=== PATIENT | female | born 1935 | race Caucasian/White ===

== ENCOUNTER 2019-09-22 07:31 | Inpatient (IN) | payer MEDICARE, OTHER, SELFPAY ==
[2019-09-14 08:32] VITALS: BMI 31.4
[2019-09-22] VITALS (20 sets, daily range): BP systolic 74–139; BP diastolic 33–65; PULSE 60–69; RESP 10–17; TEMP 35.8–36.6; O2SAT 6–100; BMI 31.4
--- NOTE | 2019-09-22 | DI.RAD.S_ITS ---
PROCEDURE: XR PELVIS 1-2V INDICATIONS: LEFT INTEROPERATIVE HIP TECHNIQUE: Intra-operative view of the pelvis and hip acquired. COMPARISON: None. FINDINGS: Bones: Intraoperative devices prior to placement of arthroplasty prostheses are in expected positions. No fractures or suspicious bony lesions. Soft tissues: Overlying surgical retractors are present, along with other intraoperative changes. IMPRESSION: Intraoperative image obtained during the patient's left hip arthroplasty procedure. Dictated by: Mick Martinez M.D. on 09/22/2019 at 11:35 Approved by: Mick Martinez M.D. on 09/22/2019 at 11:36
--- NOTE | 2019-09-22 | DI.RAD.S_ITS ---
PROCEDURE: XR PELVIS 1-2V INDICATIONS: INTEROPERATIVE LEFT HIP FOR STABLIZATION TECHNIQUE: 1 view of the lower pelvis acquired. COMPARISON: None. FINDINGS: Intraoperative AP view of pelvis shows left total hip arthroplasty in progress. IMPRESSION: Intraoperative images of left total hip arthroplasty in progress. Dictated by: Luis Crawford M.D. on 09/23/2019 at 11:01 Approved by: Luis Crawford M.D. on 09/23/2019 at 11:02
--- NOTE | 2019-09-22 06:00 | DI.RAD.S_ITS ---
PROCEDURE: XR PELVIS 1-2V INDICATIONS: POST OPERATIVE LEFT HIP TECHNIQUE: 1 view of the lower pelvis acquired. COMPARISON: [facility], , XR PELVIS 1-2V, 09/22/2019, 11:51. FINDINGS: Bones: Patient is status post left hip arthroplasty, with hardware components in expected positions. The hip joint appears congruent. The visualized bony structures appear intact. There is severe narrowing of the right hip joint with near bone on bone contact, subchondral sclerosis and cystic change. Periarticular osteophyte formation is present. Soft tissues: Overlying postoperative changes are noted. No suspicious soft tissue densities. There are quadrant surgical clips. IMPRESSION: Expected immediate postoperative appearance of left hip arthroplasty. Dictated by: Karsten Suarez LOCATED [facility]IN [facility] Interpreted: Tracy Gil MD on 09/22/2019 at 14:09 Approved by: Tracy Gil MD, PhD on 09/22/2019 at 14:55
[2019-09-22] MEDS: LACTATED RINGERS 1,000 ML 42 ML IV ×3 (08:51→16:14)
[2019-09-22] MEDS: CELECOXIB 200 MG CAPSULE PO (08:52)
[2019-09-22] MEDS: ACETAMINOPHEN 325 MG TABLET 975 MG PO (08:52)
[2019-09-22] MEDS: PREGABALIN 75 MG CAPSULE PO (08:52)
[2019-09-22] MEDS: CEFAZOLIN 2 GM/100 ML FROZ.PIGGY IV ×3 (09:01→20:27)
--- NOTE | 2019-09-22 09:02 | PM.PREOP ---
Pre-operative Note Interval Note History & Physical reviewed/Exam performed by Physician: Yes Changes to H&P: No
[2019-09-22] MEDS: TRANEXAMIC ACID 1,000 MG VIAL 1000 MG INJ ×2 (09:22→12:50)
--- NOTE | 2019-09-22 09:35 | SUR.OPER ---
Lateral on padded OR bed. Gel axillary roll. Arms secured on padded armboard with pillow supporting top arm. Padded hip positioner braces x4 - anterior and posterior chest and pelvis. Additional gel pad used anterior pelvis. Gel pad under bottom leg from knee to foot and secured with tape over sheet.
[2019-09-22] MEDS: MORPHINE 4 MG/ML INJ INJ (09:43)
[2019-09-22] MEDS: ROPIVACAINE 0.5% PF 5 MG/ML 20ML VIAL 60 ML INJ (09:43)
[2019-09-22] MEDS: KETOROLAC 30 MG/ML VIAL IV (09:43)
[2019-09-22] MEDS: SODIUM CHLORIDE IRRIG SOLUTION 250 ML, POVIDONE-IODINE SPONGE STICKS 1 APPLIC IRR (12:23)
--- NOTE | 2019-09-22 13:59 | PM.OP.1 ---
Operative Date/Time/Diagnoses Date of procedure: 09/22/19 Time of procedure: 14:01 Pre-op diagnosis: Left hip degenerative joint disease Post-op diagnosis: same Procedure & Clinicians Procedure: Left total hip arthroplasty (CPT code 55397) Modifier 22 for need for co-surgeon due to complicated acetabular anatomy. Same procedure as scheduled: Yes Indications: Patient is an 84-year-old female with severe left hip DJD. The patient has pain with activities and at rest, limited ambulation and activity tolerance, difficulties with ADLs, and failure of conservative treatment. We have discussed the nature of condition, treatment options, risks and benefits, and patient elects to proceed with total hip arthroplasty and gives informed consent. Surgeon: Behzad Burks Anesthesia Type: General and Spinal Operative Notes Findings: Notable difficulties present in this case had to do primarily with severe periacetabular osteopenia and periacetabular cysts particularly in the posterior column. This resulted in inadequate bone posteriorly for circumferential fixation of the acetabular component which required essentially revision acetabular component fixed with multiple screws. In addition prior to the final implantation and fixation attempts at fixation of a standard acetabular component resulted in medial acetabular wall penetration/fracture, but not acetabular discontinuity. Because of the complexity acetabular anatomy and problems presented, 2nd surgeon Dr. Hughes, scrubbed in for his expertise in complex acetabular arthroplasty. Closure Type: primary Specimen(s): none sent Prosthetic devices, grafts, tissues, transplants, or devices: Acetabulum: Elaine and Nephew R3 acetabular component size 50 mm, fixed with 4 fixation screws Femoral component: Elaine [employer] Nephew Anthology stem size 5 with high offset Femoral head: 32 mm + 8 cobalt chrome Estimated Blood Loss (mL): 250 Blood products transfused: none Procedure in detail: After satisfaction induction of anesthetic, and administration of IV antibiotics, the patient was positioned in the lateral decubitus position with all bony prominences well padded and pelvic position secured using a hip cleaning validation consultant positioning device. Left hip and lower extremity prepped and draped in the usual sterile fashion, 1st dose of intravenous tranexamic acid was administered, then a longitudinal incision was created centered over the greater trochanter and carried sharply through the skin and subcutaneous tissues down to the fascia leandro which was divided longitudinally and retracted with a Charnley retractor. External rotators visualize, cut, tagged, and retracted posteriorly, then the capsule was cut in a T-type fashion with the corners tagged and retracted. Hip was dislocated and femoral neck cut made according to preoperative templating. Acetabular retractors then placed, and the acetabular labrum and osteophytes were excised. The acetabulum was then sequentially reamed to 47 mm which appeared adequate, however after removal of the acetabular trial it was noted that the acetabular lip was inadequate posteriorly. The acetabulum was reamed slightly deeper and another trial appeared adequate so a 48 mm Elaine and Nephew R3 acetabular component was selected and inserted however after impacting in place this impacted more medially than anticipated although appeared stable. Intraoperative x-rays were taken which demonstrated protrusio position of the acetabular component with overall good alignment and probable medial wall fracture. Because this appeared stable liner was placed. The proximal femur was prepared by 1st removing soft tissue from the lateral femoral neck, entering the canal with a box osteotome, and sequential broaching to size 5 which had an excellent fit. The broach was left in place for a trial reduction which was then performed, however after trialing the acetabular component was obviously not stable and after removal of the implant was noted that the posterior wall was entirely inadequate. The acetabulum was copiously irrigated, and after Dr. Hughes scrubbed in, the acetabulum was further assessed, and we opted to insert the 50 mm multi-holed acetabular component. After insertion, there was minimal inherent fixation or stability, but after fixation with 2 long superior screws, fixation and postition appeared adequate. 2 more inferior screws were placed, followed by placement of a trial liner. The femoral broach was then reinserted and a series of trial reductions was performed with the neutral acetabular liner trial and a combination of standard and high offset necks with +0 +4 and +8 head lengths. With the hip flexed 90? and abducted the hip could only be rotated internally about 20? before there was posterior instability, so the trial acetabular liner was switched for a lipped trial with the lip directed posteriorly. Moderate amount of anterior osteophyte was then excised using a curved osteotome. This in combination with a high offset +8 neck yielded good stability with flexion at 90 abduction and internal rotation to about 60? of internal rotation. The trial liner was then exchanged for a permanent polyethylene posterior lipped liner. The femoral broach was removed and a size 5 high offset Elaine and Nephew anthology stem was inserted and impacted with excellent fixation achieved. A 32 mm +8 cobalt chrome ball was then impacted onto the femoral component. The hip was reduced and satisfactory leg length, range of motion, and stability characteristics were achieved. Periarticular tissues were infiltrated with morphine, Toradol, and ropivacaine. The hip was copiously irrigated, and the capsule repaired with #2 Ethibond, and the piriformis was repaired back to the greater trochanter with the same. Fascia leandro closed with interrupted #1 Ethibond sutures, and the subcutaneous tissues were closed in 2 layers of 0 Vicryl and 2 0 Vicryl. Skin was closed with gordo and sterile dressings applied. Second dose of tranexamic acid was administered intravenously, and the anesthetic was terminated. Complications: none Post-operative Condition: stable Disposition: PACU Plan for aftercare: Routine postoperative after care with the exception of toe-touch weight-bearing for 6 weeks to allow bone consolidation. Will also use an abduction pillow while in bed and continue to observe posterior hip precautions. Probable discharge home or to extended care facility depending on status on postop day 3.
--- NOTE | 2019-09-22 14:41 | SUR.PHASEI ---
Report given to Alla
[2019-09-22] MEDS: ACETAMINOPHEN 325 MG TABLET 650 MG PO ×2 (15:45→20:27)
[2019-09-22] MEDS: diphenhydrAMINE 25 MG TABLET PO (20:28)
--- NOTE | 2019-09-22 23:27 | PC.NURSE ---
Evening Shift Note- Called anesthia regaurding Patients blood pressures and no order for IV fluids. Dr. Lorenzana came up to see the patient. Recieved orders for LR at 42cc/hr and and order for a bolus of LR to give if patients BP's went lower then the 88/[address] I had [address] about[address] Lorenzana stated patient blood pressures were ok and he was not worried about them at this point. I did hold patient 2100 blood pressure medications. Patient reports no s/s of low blood pressure. safety measures in place. call berumen and phone within reach. will continue to monirtor.
[2019-09-23] VITALS (13 sets, daily range): BP systolic 116–151; BP diastolic 51–74; PULSE 60–80; RESP 14–18; TEMP 36.1–36.8; O2SAT 95–98
--- NOTE | 2019-09-23 00:32 | PC.NURSE ---
Addendum entered by Ramandeep Pringle R.N. 09/23/19 05:19: Patient had a measured void in bed freeman of 75ml and one unmeasured void in bed. Bladder scan showed approx 2ml of retained urine. Original Note: Shift note: Received pt from evening shift. Patient answers orientation questions correctly but is acutely confused with memory loss and auditory/visual hallucinations. Patient is associating light from hallway with leg SCD's, when the bar fills up, then I get pressure on my legs and per report from TRANSIT CLERK patient states there's a macias on my ceiling and it's talking to me. Patient can be reoriented but becomes forgetful to the sensations she is experiencing with the blood pressure cuff, leg SCDs, and when she was bladder scanned on evening shift. Patient had not met post op void and was experiencing hypotension, was bladder scanned on evening shift and per TRANSIT CLERK had estimated 84mls. Patient was encouraged to drink fluids, became nauseated and had small emesis. Patient's bp has improved and is now 116/57, holding LR bolus for now. Patient is denying pain, is able to use call light, with confusion is high fall risk, bed alarm on and functioning, will continue to reorient frequently and monitor closely.
[2019-09-23] MEDS: CEFAZOLIN 2 GM/100 ML FROZ.PIGGY IV (04:03)
[2019-09-23] MEDS: LEVOTHYROXINE 112 MCG TABLET PO (05:35)
[2019-09-23] MEDS: PANTOPRAZOLE 20 MG TABLET PO (05:35)
[2019-09-23 05:37] LABS: Hematocrit 32.2 % (36-46)
[2019-09-23] MEDS: PRAVASTATIN 20 MG TABLET 40 MG PO (08:22)
[2019-09-23] MEDS: VIT C/E/ZN/COPPR/LUTEIN/ZEAXAN CAPSULE 1 CAP PO ×2 (08:22→21:06)
[2019-09-23] MEDS: ACETAMINOPHEN 325 MG TABLET 650 MG PO ×2 (08:23→21:06)
--- NOTE | 2019-09-23 10:12 | PM.PN.1 ---
Subjective Subjective Date Patient Seen: 09/23/19 Time Patient Seen: 10:12 Interval history: Patient is POD#1 s/p right posterior MARGRET with Dr. Burks. Pain well mild and well controlled. She has not yet mobilized with PT. Had some confusion overnight, thought she was waiting to have surgery still, but she is oriented this morning and answers questions appropriately. Denies any chest pain or shortness of breath. Exam Vital Signs (past 8 hours): - 09/23/19 05:05 09/23/19 08:00 09/23/19 08:27 Temperature 97.9 F 98.2 F Pulse Rate 60 67 60 Respiratory Rate 18 16 Blood Pressure 124/51 L 123/52 L 123/52 L Pulse Oximetry 96 98 09/23/19 08:28 09/23/19 08:45 Temperature Pulse Rate 60 66 Respiratory Rate Blood Pressure 123/52 L Pulse Oximetry 98 Oxygen Delivery Method Room Air Oxygen Flow Rate 0 Narrative Exam Narrative: 84 year old female resting comfortably in bed. Alert and oriented in no acute distress. Bulky dressing in place over left hip is CDI. Patient able to fire ankle flexors and extensors. Palpable pedal pulse. Calves soft, compressible. Objective Labs Result Diagrams: 09/23/19 05:21 Labs: Laboratory Results - last 24 hr 09/23/19 05:21 Hgb 11.0 L Hct 32.2 L Assessment & Plan Assessment & Plan narrative: Patient doing well post operatively. Patient mildly asymptotically hypotensive, BP meds held this AM. Will resume later today if improved. Patient takes Warfarin for history of Afib, Lovenox x3 days for bridge. She is to remain toe touch weight bearing for 6 weeks with posterior hip precautions to allow for bone consolidation. No abduction pillow present in the room, discussed need for this with PT. Due to concerns over the acetabulum and subsequent activity restrictions patient will require a 3 day inpatient stay, and will likely need vs SNF at time of discharge. Quality VTE Deep Vein Thrombosis/Pulmonary Embolism Present on Admission: No
[2019-09-23] MEDS: ENOXAPARIN 40 MG/0.4 ML SYRINGE SUBCUT (10:57)
--- NOTE | 2019-09-23 11:00 | PT.IIE ---
Current Diagnoses Unilateral primary osteoarthritis, left hip (09/22/19) Surgery Performed Operation Date: 09/22/19 08:45 Actual Procedures p Total Hip Arthroplasty(Left) - Behzad Burks MD Surgical History (Last Updated 09/14/19 @ 08:48 by Kayla Baldwin RN) H/O cardiac catheterization (Acute ~10/2010) H/O cardiac radiofrequency ablation (Acute) Hx of appendectomy (Acute) Medical History (Last Updated 09/14/19 @ 09:22 by Kayla Baldwin RN) A-fib (Acute) BCC (basal cell carcinoma) (Acute) CAD (coronary artery disease) (Acute) Easy bruisability (Acute) Fibromyalgia (Acute) Former smoker (Acute) GERD (gastroesophageal reflux disease) (Acute) HLD (hyperlipidemia) (Acute) HTN (hypertension) (Acute) Hypothyroidism (Acute) Osteoarthritis (Acute) Osteoporosis (Acute) Pacemaker (Acute ~2017) Pneumonia (Acute) SCC (squamous cell carcinoma) (Acute) Wrist fracture (Acute) Physical Therapy Inpatient Evaluation/Re-Eval M1 PT/OT-IP Prior Functional Status Start: 09/23/19 08:24 Freq: NEEDED Status: Active Protocol: Document 09/23/19 11:21 AW (Rec: 09/23/19 13:10 AW [email or web address]) Medical Review Prior Functional Status Medical History Reviewed Yes Diet/Fluid Consistency Regular Communication WNL. No deficits on EMR review . Mobility and Gait Pt used a 4WW 100% of the time with limited ambulation distance Activities of Daily Living and IADL's Pt required assistance with lower body dressing and with washing her back in the shower . She drives and performs light household duties. Her daughter Ngozi lives on an adjacent property and helps with meal prep. Prior Functional Level (Other details) Pt reports an injurious fall ~ 2 weeks ago during which she caught her right 5th digit which remains swollen. She also admits to one other non- injurious fall in the past year. Social History Household Members spouse Living Arrangements House Number of Floors (Floors) Two Floors Number of Stairs To Enter/Railing? Newly-ramped entry. However, once inside, pt climbs 4 stairs to a living area where she is accustomed to spending a lot of time. There is a right-sided railing going up those stairs Home Environment High Toilet,Tub/Shower Doors Home Equipment Four Wheel Walker,Straight Cane,Raised Toilet Seat w/ Armrests,Shower Seat with Backrest,Hand Held Shower Additional Social History Comment Pt lives with her spouse, Tomasz, who is a retired veterinary pathologist and has used a L UE prosthesis >50 years. He is able to provide physical assist at home. 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 Of note regarding home environment, pt is ~4'8 and requires a stool to get in and out of her bed. M2 PT-IP Current Condition Start: 09/23/19 08:24 Freq: NEEDED Status: Active Protocol: Document 09/23/19 11:21 AW (Rec: 09/23/19 13:10 AW [email or web address]) Physical Therapy Current Condition Current Condition Evaluation Date 09/23/19 Treatment Diagnosis s/p L MARGRET, impaired mobility Onset Date 09/22/2019 Precautions Posterior Hip Precautions No Hip Flexion > 90 degrees,No Hip Internal Rotation,No Hip Adduction Other Precautions Abduction pillow while in bed. Pacemaker. Weight Bearing Status Weight Bearing Status Touch Down Weight Bearing M3 PT-IP Subjective Start: 09/23/19 08:24 Freq: NEEDED Status: Active Protocol: Document 09/23/19 11:21 AW (Rec: 09/23/19 13:10 AW [email or web address]) Subjective Physical Therapy Visit Type Type Initial Evaluation Visit Start Time 09:13 Visit Stop Time 10:30 Total Visit Minutes 77 Notes Pt's spouse, Tomasz, present through most of evaluation and contibuted to history. Physical Therapy Visit Comments Patient Comments Pt alert but somewhat confused , willing to work with therapy . This is a lot to remember and think about. Therapy Pain Assessment Pain When Pain Assessed During Mobility Pain Present Pain Present Pain Reported Location left hip Intensity 2 Scale Used 0/10 at rest; 2/10 with mobility Description Pressure Pain Management Techniques Distraction,Re-positioning, Timing of Activity with Medications M4 PT-IP Mobility and Gait Start: 09/23/19 08:24 Freq: NEEDED Status: Active Protocol: Document 09/23/19 11:21 AW (Rec: 09/23/19 13:10 AW [email or web address]) PT-Bed Mobility Assessment Supine to Sit Supine to Sit Minimal Assistance,1 Person Assistance,Head of Bed Elevated,Bedrails Scooting Scooting to Edge of Bed Minimal Assistance PT-Transfer Assessment Sit to and From Stand Sit to and from Stand Maximum Assistance,1 Person Assistance,Use of Upper Extremities Equipment Transfer Assistive Device Gait Belt,Front Wheeled Walker Orthotic/Prosthetic Devices or Brace: No Transfers Transfer Destination Chair Transfer Technique Stand Step Pivot Transfer Ability Level of Assist Maximum Assistance,1 Person Assistance Comments Mobility Comments Pt completed supine to sit with heavy use of bed features and min assist of therapist in front to help pull up to sitting with cues to observe posterior hip precautions. Pt was able to sit EOB with and without UE support. She stood using FWW, max A x 1, and verbal cues to maintain NWB LLE. She had difficulty bearing weight through her BUE due to chronic carpal tunnel syndrome (L worse than R) and swollen R 5th digit, but was able to pivot transfer to chair using FWW and max A x 1. Pt was positioned in the chair with bed pillow between legs, call light and needs within reach, and spouse visiting. Gait Assessment Comments Gait Comments Unable to assess Stair Climbing Assessment Comments Stair Climbing Comments Unable to assess PT-Balance Assessment Sitting Balance and Reactions Static Sitting Balance Ability Good Dynamic Sitting Balance Ability Fair Standing Balance and Reactions Static Standing Balance Ability Poor Dynamic Standing Balance Ability Poor Device Used FWW M5 PT-IP Objective Assessments Start: 09/23/19 08:24 Freq: NEEDED Status: Active Protocol: Document 09/23/19 11:21 AW (Rec: 09/23/19 13:10 AW [email or web address]) Orientation Orientation/Cognition Level of Alertness Confusional State Orientation Name,Month,Year,Place, Situation Language Function Ability No Deficits Noted Safety Awareness Decreased Safety Awareness Memory Description Short Term Impaired Comments Pt noted to have had hallucinations and confusion overnight but presents with improved orientation this morning. Gross Range of Motion Upper Extremity ROM Assessment Within Functional Limits Lower Extremity ROM Assessment Left Impaired Strength Upper Extremity Strength Assessment Bilaterally Impaired Shoulder 4-/5 Elbow 4-/5 Wrist 3+/5 Hand 4-/5 Lower Extremity Strength Assessment Bilaterally Impaired Hip R 4/5; L 3-/5 Knee R 4/5; L 3-/5 Ankle B 4/5 Coordination Assessment Gross Coordination Gross Coordination WNL Sensation Assessment Sensation Gross Sensation WNL M6 PT-IP Treatment Start: 09/23/19 08:24 Freq: NEEDED Status: Active Protocol: Document 09/23/19 11:21 AW (Rec: 09/23/19 13:10 AW [email or web address]) Physical Therapy Treatment Exercises Exercises Ankle Pumps,Heel Slides Education Education Provided Precautions,Weight Bearing Status,Post-Op Packet,Safety Other Treatments Other Treatment Performed Provided education on role of PT, plan of care, post-op precautions, weightbearing status, and safe use of FWW. Also initiated discharge planning conversation with pt and spouse stating they are open to rehab options. M7 PT-IP Assessment and Plan Start: 09/23/19 08:24 Freq: NEEDED Status: Active Protocol: Document 09/23/19 11:21 AW (Rec: 09/23/19 13:10 AW [email or web address]) PT Summary Assessment and Plan Potential Rehabilitation Potential Good Status of Condition at Evaluation Evolving Summary Impairments Pain,ROM,Strength,Balance, Cognition,Bed Mobility, Transfers,Gait Assessment Summary Margaret is an 84 yo woman seen for PT evaluation on POD1 following L MARGRET with posterior approach which was complicated by an acetabular wall fracture. She will be TTWB for 6 weeks. At baseline, she uses a 4WW at all times. She states she uses her right hand on the walker but leans her left forearm on it due to chronic carpal tunnel. She also requires assist with lower body dressing and showering. On evaluation, this therapist had concerns for pt 's ability to manage high cognitive load of posterior hip precautions and TTWB status. She required min to max assist x 1 for bed mobility and stand pivot transfer due to poor RLE strength and impaired ability to bear weight through bilateral wrists secondary to carpal tunnel syndrome. She may benefit from a platform for LUE weightbearing. PT recommends SNF rehab Goals Bed Mobility Goal Contact Guard Assistance Transfer Goal Contact Guard Assistance,Front Wheeled Walker Gait Goal Contact Guard Assistance,Front Wheel Walker Gait Distance 15 Other Goals - up/down 1 platform step with FWW CGA for safe access to her bed at home. Days to Meet Goals 10 Frequency of Treatment Frequency Of Treatment Twice a Day Treatment Plan Physical Therapy Treatment Plan Bed Mobility Training,Transfer Training,Gait Training, Therapeutic Exercise,Balance Retraining,Post Op Education, Discharge Planning,Hot or Cold Pack,Neuromuscular Re-ed, Manual Therapy Other Recommendations and Next Treatment review precautions, WB status, Focus ther ex, transfers Recommendations To Nursing Amount of Assist Needed 2 Person Assist,3 or More Person Assist Discharge Recommendations PT Discharge Recommendations SNF Rehab Equipment Needed for Home Before FWW if going home Discharge
--- NOTE | 2019-09-23 11:02 | PC.NURSE ---
Addendum entered by Alla Gilman R.N. 09/23/19 15:01: Patient just given her Metoprolol at 1500. BP 134/58 and pulse 80. Ortho PA stated to given this when systolic up to high 50s Original Note: Assess: Pt woke up and thought that she was not suppose to eat breakfast this morning because she was going to have surgery. It was reported by noc shift that she was having some hallucinations, maybe from anesthesia. L.hip dressing is cdi, Pt is non weight bearing on her hip. Up in chair now and comfortable. Pt has a pace maker, her blood pressure has been low 100s/40s. PA into assess patient and states to give at least Metoprolol xr if her blood pressure (diastolic) comes up in to the high 50s. She takes other blood pressure meds that have been held this morning and also takes another beta rashid. She has a hx of afib, and denies heart palpitations, pacemaker felt and heart rate is regular at this time.
[2019-09-23] MEDS: HYDROCODONE/ACET 5/325 TABLET 1 TAB PO ×2 (12:59→21:06)
--- NOTE | 2019-09-23 14:21 | CM.IDA ---
Initial DCP Assessment Note: Pt is an 84 yo female, resident of [place]. Pt is POD#1 from left hip surgery w/ Dr Bruks. PCP: Nori Lima Payer: [facility]/[place] Met w/pt and her this morning, introduced role. Pt/spouse live on a farm and dtr Ngozi lives on the same property. Pt is not indp in ADLs, requires assist w/bathing, meal prep and chores/errands, see therapy note for detail. According to therapy team, pt would benefit from SNF before return home, so this [employer] discussed [facility] SNF benefit w/pt/spouse and provided the [facility] choice list. Returned after lunch to ask pt for SNF choice and she explained her family was touring options and she should have a choice by this afternoon or tomorrow morning. [employer] contact information left on white board in . Following closely for coordination of DCP. ELIAS Peres Discharge Planning/Care Management CM Discharge Assessment Start: 09/23/19 14:16 Freq: Status: Active Protocol: Document 09/23/19 14:16 CHRIS (Rec: 09/23/19 14:20 CHRIS [id number]) Discharge Planning Assessment Assigned Director Clinical Operations ELIAS Puente DPOA/Assigned Designee Name Tomasz () Ngozi ( daughter) Contact Information [place]: [phone] Ngozi: [phone] Advance Directives? Yes Advance Directives on File No History Provided By Patient Prior Living Arrangements House Household Members spouse Independent with ADL's No: 4WW, limited ambulation, Is patient alert and oriented? Yes: Some short term memory loss Needs Assistance With Bathing,Meal Prep,Managing Medications,Home Chores / Shopping Caregiver for Another No DME Already Rented / Owned FWW / Walker Patient/Family Preference Long-Term Facility Barriers to Discharge Yes Discharge Plan Long-Term Facility Transportation Arrangement Cab[facility] Additional Comment SNF referral pending choice from pt/family Medicare Choice List Provided Yes Whiteboard Updated in Patient Room with Yes name and ext. # of Director Clinical Operations
[2019-09-23] MEDS: METOPROLOL ER 50 MG TABLET PO ×2 (14:58→21:08)
--- NOTE | 2019-09-23 15:57 | OT.IP.EVAL ---
Current Diagnoses Unilateral primary osteoarthritis, left hip (09/22/19) Surgery Performed Operation Date: 09/22/19 08:45 Actual Procedures p Total Hip Arthroplasty(Left) - Behzad Burks MD Past Medical History (Last Updated 09/14/19 @ 09:22 by Kayla Baldwin RN) A-fib (Acute) BCC (basal cell carcinoma) (Acute) CAD (coronary artery disease) (Acute) Easy bruisability (Acute) Fibromyalgia (Acute) Former smoker (Acute) GERD (gastroesophageal reflux disease) (Acute) HLD (hyperlipidemia) (Acute) HTN (hypertension) (Acute) Hypothyroidism (Acute) Osteoarthritis (Acute) Osteoporosis (Acute) Pacemaker (Acute ~2017) Pneumonia (Acute) SCC (squamous cell carcinoma) (Acute) Wrist fracture (Acute) Surgical History (Last Updated 09/14/19 @ 08:48 by Kayla Baldwin RN) H/O cardiac catheterization (Acute ~10/2010) H/O cardiac radiofrequency ablation (Acute) Hx of appendectomy (Acute) Occupational Therapy Inpatient Evaluation/Re-Eval M1 PT/OT-IP Prior Functional Status Start: 09/23/19 08:24 Freq: NEEDED Status: Active Protocol: Document 09/23/19 15:57 PJM (Rec: 09/23/19 16:36 PJM [email or web address]) Medical Review Prior Functional Status Medical History Reviewed Yes Diet/Fluid Consistency Regular Communication WNL. No deficits on EMR review . Mobility and Gait Pt used a 4WW 100% of the time with limited ambulation distance due to hip pain. Activities of Daily Living and IADL's Pt states she was indep with grooming, toileting and seated shower. She required assistance with lower body dressing (primarily socks). 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 Her daughter Ngozi lives on an adjacent property and helps with meal prep. Prior Functional Level (Other details) Pt reports an injurious fall ~ 2 weeks ago during which she caught her right 5th digit which remains swollen. She also admits to one other fall in the past year with no injuries. Social History Household Members spouse Living Arrangements House Number of Floors (Floors) Two Floors Number of Stairs To Enter/Railing? ramp at entrance; 4 stairs inside to living area Home Environment High Toilet,Tub/Shower,Tub/ Shower Doors Home Equipment Four Wheel Walker,Straight Cane,Raised Toilet Seat w/ Armrests,Shower Seat with Backrest,Hand Held Shower Employment Status Retired M2 OT-IP Current Condition Start: 09/23/19 13:59 Freq: Status: Active Protocol: Document 09/23/19 15:57 PJM (Rec: 09/23/19 16:36 PJM [id number]) Occupational Therapy Current Condition Current Condition Evaluation Date 09/23/19 Treatment Diagnosis decreased ADL's, mobility, cognition s/p LTHA w/intra-op acetabular fx due to osteopenia Diagnosis Onset Date 09/22/19 Post Operative Precautions Posterior Hip Precautions No Hip Flexion > 90 degrees,No Hip Internal Rotation,No Hip Adduction Other Precautions fall risk, confusion, recommend B wrist splints on for mobility due to B CTS Weight Bearing Status Weight Bearing Status Touch Down Weight Bearing Allowed Weight Bearing Amount (enter % LLE x 6 weeks or #) (%) M3 OT- IP Subjective and Pain Start: 09/23/19 13:59 Freq: Status: Active Protocol: Document 09/23/19 15:57 PJM (Rec: 09/23/19 16:36 PJM [id number]) OT- Subjective Occupational Therapy Visit Type Type Initial Evaluation Visit Start Time 15:20 Visit Stop Time 15:57 Total Visit Minutes 37 Notes No family here this session. Occupational Therapy Visit Comments Patient Comments My daughter and are going to look at some rehab places for me. Patient/Caregiver Goals to get stronger, be able to walk without pain and return home with OT Pain Assessment Pain When Pain Assessed After Treatment Pain Present Pain Present Pain Reported Location left hip Intensity 5 Scale Used Numeric (1 - 10) Description Aching,Acute Pain Behaviors Guarding Management Techniques Distraction,Re-positioning, Timing of Activity with Medications M4 OT- IP ADL's Start: 09/23/19 13:59 Freq: Status: Active Protocol: Document 09/23/19 15:57 PJM (Rec: 09/23/19 16:36 PJM [email or web address]) OT ADL-Grooming General Evaluation Grooming Ability Standby Assistance Areas Needing Assistance Retrieving/Set-up of Grooming Items,Face Washing Comments OT Grooming Comments seated in chair OT ADL-Oral Care Comments Oral Care Comments did not occur this session OT ADL-Dressing General Eval Lower Body Dressing Ability Total Assistance Assistive Devices Dressing Assistive Devices Long Handled Shoe Horn,Diversity Manager ,Sock Aid Comments OT Dressing Comments provided LB dressing equipt; pt requires repetition of explanation re: why she needs this equipt OT ADL-Toileting Comments OT Toileting Comments did not occur this session OT ADL-Bathing Bathing Type Bathing Type Bed Bath General Evaluation Bathing Ability Maximal Assistance M5 OT- IP IADL's Start: 09/23/19 13:59 Freq: Status: Active Protocol: Document 09/23/19 15:57 PJM (Rec: 09/23/19 16:36 PJ [id number]) OT-Instrumental Activities of Daily Living Deficits IADL Deficits Identified Deficits Home Safety Awareness Awareness of Need for Assistance at Home Decreased Awareness Medication Management Medication Management Caregiver Provides Supervision Medication Management Comments pt appears to have some short term memory deficits, recommend supervision for medication management Money Management Money Management Caregiver Provides Supervision Money Management Comments recommend supervision due to short term memory deficits Meal Preparation Meal Preparation Comments pt needs total assist at present Naval Inspector Naval Inspector Comments pt needs total assist at present Driving Driving Comments pt not able to drive at present M6 OT- IP Functional Cognition Start: 09/23/19 13:59 Freq: Status: Active Protocol: Document 09/23/19 15:57 PJM (Rec: 09/23/19 16:36 PJ [id number]) Cognitive Factors Limiting Selfcare Function Cognitive Ability Level of Alertness Alert Patient Orientation Name,Month,Year,Place, Situation Attention Span Ability Capable of Focused Attention, Capable of Sustained Attention Ability to Follow Commands Able to Follow One Step Commands Memory Description Short Term Impaired Safety Awareness Decreased Recall of Precautions,Decreased Ability to Apply Precautions, Underestimates Need for Assistance Problem Solving Ability Unable to Identify Errors, Needs Assist to Identify Solutions Executive Function Ability Unable to Remember Details Cognitive Comments Cognitive Assessment Comments Pt still confused about day of week, day of surgery and some recent events. Pt able to recall 2/3 hip precautions with min cues but needs max cues to apply them during functional tasks. OT- Vision and Hearing OT- Hearing Assessment OT- Hearing Assessment WFL OT- Vision Assessment Visual Acuity WFL,Glasses All The Time M7 OT- IP Mobility and Balance Start: 09/23/19 13:59 Freq: Status: Active Protocol: Document 09/23/19 15:57 PJM (Rec: 09/23/19 16:36 PJ [id number]) OT-Transfer Assessment Sit to and From Stand Sit to and from Stand Minimal Assistance,Moderate Assistance,2 Person Assistance ,Use of Upper Extremities Transfers Transfer Ability Minimal Assistance,Moderate Assistance,2 Person Assistance ,Use of Upper Extremities Technique Transfer Destination Chair Transfer Technique Stand Pivot Devices Transfer Assistive Devices Gait Belt,Front Wheeled Walker Comments Mobility Comments Mod assist of 1 with 2nd person min assist; pt does best transferring to R side; pt following TTWB precaution for LLE with min cues. OT- Gait Assessment Comments Gait Ability Comments did not occur OT- Balance Assessment Sitting Balance and Reactions Static Sitting Balance Ability Good Dynamic Sitting Balance Ability Fair Standing Balance and Reactions Static Standing Balance Ability Fair Dynamic Standing Balance Ability Fair M8 OT- IP Objective Assessments Start: 09/23/19 13:59 Freq: Status: Active Protocol: Document 09/23/19 15:57 PJM (Rec: 09/23/19 16:36 PJM [id number]) OT Gross Range of Motion Upper Extremity Range of Motion Assessment Within Functional Limits ROM Impairments Pt reports B CTS with B wrist splints used at night. R 5th finger painful from recent fall 2 weeks ago. OT Strength Upper Extremity Strength Assessment Within Functional Limits Comments Strength Comments Strength WFL for basic self care with no focal weakness. OT- Coordination Assessment Comments Coordination Comments BUE WFL for self care OT-Muscle Tone Assessment Muscle Tone WNL Yes OT Sensation Assessment Edema Edema Present Edema Comments R 5th finger swollen from recent fall 2 weeks ago M9 OT- IP Assessment and Plan Start: 09/23/19 13:59 Freq: Status: Active Protocol: Document 09/23/19 15:57 PJM (Rec: 09/23/19 16:36 PJM [id number]) OT Summary Assessment and Plan Potential Rehabilitation Potential Good Analytic Complexity at Evaluation Low Summary OT Impairments Pain,Strength,Balance, Functional Cognition, Functional Mobility,Grooming, Dressing,Toileting,Bathing, Toilet Transfers,Shower Transfers Assessment Summary Low complexity OT assessment completed on this 84 yr old female admitted for elective L MARGRET with intra operative acetabular fx due to osteopenia. Pt has posterior hip precautions with TTWB LLE x 6 weeks. Note co-morbidity of B CTS L>R, with B wrist splints used at night. Pt presents with confusion re: recent events but alert, generally oriented and able to follow one step commands. Pt has decreased insight into how current hip precautions will interfere with her ability to complete basic self care tasks. Pt has significant performance deficits in all functional mobility/transfers, standing grooming, lower body dressing, bathing and toileting. Pt is far below her baseline level of function and is not safe to return home with elderly . Recommend SNF at d/c for further rehab services to increase independence, safety and endurance with all mobility and self care. Goals Grooming Goal Independent Dressing Goal Minimal Assistance,Long Handled Shoe Horn,Diversity Manager,Sock Aid Toileting Goal Minimal Assistance Bathing Goal Minimal Assistance Toilet Transfer Goal Minimal Assistance Patient/Caregiver Education Goal Demonstrate Post-Op Precautions,Demonstrate Energy Conservation and Pacing OT-Other Goals Grooming to be done seated in chair after set up. Bathing goal is for upper body sponge bath in chair. Days to Meet Goals 5 Frequency of Treatment Frequency Of Treatment Once a Day Treatment Plan OT Treatment Plan ADL Training,Functional Cognition Training,Functional Mobility,Patient/Family Education,Discharge Planning Discharge Recommendations OT Discharge Recommendations SNF Rehab Home Equipment Needs tto be determined in next rehab setting
[2019-09-23] MEDS: LACTATED RINGERS 1,000 ML 42 ML IV (16:33)
--- NOTE | 2019-09-23 16:45 | PT.IPTN ---
Addendum entered and electronically signed by Linn Ward PT 09/23/19 16:52: Did not assess transfer with platform on walker out of concern for already-significant cognitive load (precautions, weightbearing status). PT will assess pt's ability to transfer with use of bilateral wrist splints and FWW at next visit. Original Note: Current Diagnoses Unilateral primary osteoarthritis, left hip (09/22/19) Surgery Performed Operation Date: 09/22/19 08:45 Actual Procedures p Total Hip Arthroplasty(Left) - Behzad Burks MD Physical Therapy Treatment Note M2 PT-IP Current Condition Start: 09/23/19 08:24 Freq: NEEDED Status: Active Protocol: Document 09/23/19 11:21 AW (Rec: 09/23/19 13:10 AW [email or web address]) Physical Therapy Current Condition Current Condition Evaluation Date 09/23/19 Treatment Diagnosis s/p L MARGRET, impaired mobility Onset Date 09/22/2019 Precautions Posterior Hip Precautions No Hip Flexion > 90 degrees,No Hip Internal Rotation,No Hip Adduction Other Precautions Abduction pillow while in bed. Pacemaker. Weight Bearing Status Weight Bearing Status Touch Down Weight Bearing M3 PT-IP Subjective Start: 09/23/19 08:24 Freq: NEEDED Status: Active Protocol: Document 09/23/19 16:29 AW (Rec: 09/23/19 16:45 AW [id number]) Subjective Physical Therapy Visit Type Type Treatment Note Visit Start Time 15:02 Visit Stop Time 15:29 Total Visit Minutes 27 Notes OT arrived group home through session and assisted with OOB mobility. 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 Therapy Pain Assessment Pain When Pain Assessed During Mobility Pain Present Pain Present Denied Pain Location left hip Intensity 3 Scale Used 3/10 at rest; unchanged with mobility Pain Management Techniques Distraction,Re-positioning, Timing of Activity with Medications M4 PT-IP Mobility and Gait Start: 09/23/19 08:24 Freq: NEEDED Status: Active Protocol: Document 09/23/19 16:29 AW (Rec: 09/23/19 16:45 AW [id number]) PT-Bed Mobility Assessment Supine to Sit Supine to Sit Minimal Assistance,1 Person Assistance,Head of Bed Elevated,Bedrails Scooting Scooting to Edge of Bed Minimal Assistance PT-Transfer Assessment Sit to and From Stand Sit to and from Stand Moderate Assistance,2 Person Assistance,Use of Upper Extremities Equipment Transfer Assistive Device Gait Belt,Front Wheeled Walker Orthotic/Prosthetic Devices or Brace: No Transfers Transfer Destination Chair Transfer Technique Stand Step Pivot Transfer Ability Level of Assist Moderate Assistance,2 Person Assistance,Use of Upper Extremities Comments Mobility Comments Pt moved her legs toward EOB independently and completed supine to sit with use of bed rails and therapist assist to pull up to sitting. Pt completed sit to stand and stand pivot transferred to her right side mod A x 2. She required min assist and placement of a cushion under her feet in order to scoot her hips back in the chair. Pt was left with OT attending. M5 PT-IP Objective Assessments Start: 09/23/19 08:24 Freq: NEEDED Status: Active Protocol: Document 09/23/19 11:21 AW (Rec: 09/23/19 13:10 AW [email or web address]) Orientation Orientation/Cognition Level of Alertness Confusional State Orientation Name,Month,Year,Place, Situation Language Function Ability No Deficits Noted Safety Awareness Decreased Safety Awareness Memory Description Short Term Impaired Comments Pt noted to have had hallucinations and confusion overnight but presents with improved orientation this morning. Gross Range of Motion Upper Extremity ROM Assessment Within Functional Limits Lower Extremity ROM Assessment Left Impaired Strength Upper Extremity Strength Assessment Bilaterally Impaired Shoulder 4-/5 Elbow 4-/5 Wrist 3+/5 Hand 4-/5 Lower Extremity Strength Assessment Bilaterally Impaired Hip R 4/5; L 3-/5 Knee R 4/5; L 3-/5 Ankle B 4/5 Coordination Assessment Gross Coordination Gross Coordination WNL Sensation Assessment Sensation Gross Sensation WNL M6 PT-IP Treatment Start: 09/23/19 08:24 Freq: NEEDED Status: Active Protocol: Document 09/23/19 16:29 AW (Rec: 09/23/19 16:45 AW [id number]) Physical Therapy Treatment Exercises Exercises Ankle Pumps,Gluteal Sets,Quad Sets,Heel Slides,Supine Hip Abduction Education Education Provided Precautions,Weight Bearing Status,Safety M7 PT-IP Assessment and Plan Start: 09/23/19 08:24 Freq: NEEDED Status: Active Protocol: Document 09/23/19 16:29 AW (Rec: 09/23/19 16:45 AW [id number]) PT Summary Assessment and Plan Summary Impairments Pain,ROM,Strength,Balance, Cognition,Bed Mobility, Transfers,Gait Progress Towards Goals Slow Progress - Other Assessment Summary Margaret performed better transferring with 2-person assist and transferring to her right side. PT was able to observe that pt was, indeed, able to maintain TTWB LLE during all mobility. Her family members are touring SNF facilities today. PT continues to recommend SNF rehab at discharge. Goals Bed Mobility Goal Contact Guard Assistance Transfer Goal Contact Guard Assistance,Front Wheeled Walker Gait Goal Contact Guard Assistance,Front Wheel Walker Gait Distance 15 Other Goals - up/down 1 platform step with FWW CGA for safe access to her bed at home. Days to Meet Goals 10 Frequency of Treatment Frequency Of Treatment Twice a Day Treatment Plan Physical Therapy Treatment Plan Bed Mobility Training,Transfer Training,Gait Training, Therapeutic Exercise,Balance Retraining,Post Op Education, Discharge Planning,Hot or Cold Pack,Neuromuscular Re-ed, Manual Therapy Other Recommendations and Next Treatment review precautions, WB status, Focus ther ex, transfers Recommendations To Nursing Amount of Assist Needed 2 Person Assist,3 or More Person Assist Discharge Recommendations PT Discharge Recommendations SNF Rehab Equipment Needed for Home Before FWW if going home Discharge
[2019-09-23] MEDS: WARFARIN 2.5 MG TABLET PO (18:41)
[2019-09-23] MEDS: diphenhydrAMINE 25 MG TABLET PO (21:07)
[2019-09-23] MEDS: SOTALOL 80 MG TABLET PO (21:09)
[2019-09-24] VITALS (8 sets, daily range): BP systolic 117–150; BP diastolic 51–86; PULSE 67–104; RESP 18; TEMP 36.4–36.9; O2SAT 90–93
[2019-09-24] MEDS: HYDROCODONE/ACET 5/325 TABLET 1 TAB PO ×6 (01:14→22:45)
[2019-09-24] MEDS: PANTOPRAZOLE 20 MG TABLET PO (05:57)
[2019-09-24] MEDS: LEVOTHYROXINE 112 MCG TABLET PO (05:57)
[2019-09-24] MEDS: VIT C/E/ZN/COPPR/LUTEIN/ZEAXAN CAPSULE 1 CAP PO ×2 (08:53→21:18)
[2019-09-24] MEDS: PRAVASTATIN 20 MG TABLET 40 MG PO (08:54)
[2019-09-24] MEDS: FUROSEMIDE 20 MG TABLET PO (08:54)
[2019-09-24] MEDS: DOCUSATE 100 MG CAPSULE PO ×2 (08:54→21:17)
[2019-09-24] MEDS: METOPROLOL ER 50 MG TABLET PO ×2 (08:54→21:17)
--- NOTE | 2019-09-24 09:33 | PM.PN.1 ---
Subjective Subjective Date Patient Seen: 09/24/19 Time Patient Seen: 09:33 Interval history: Patient is POD#2 s/p right posterior MARGRET with Dr. Burks. Pain mild to moderate, worse after mobilizing yesterday, continues to be controlled with medication. Remains 3 person assist, having difficulty with mobilizing to toilet. Denies any chest pain or shortness of breath. Exam Vital Signs (past 8 hours): - 09/24/19 04:19 09/24/19 08:18 Temperature 98.4 F 97.6 F Pulse Rate 75 67 Respiratory Rate 18 18 Blood Pressure 150/86 H 129/59 L Pulse Oximetry 92 91 Oxygen Delivery Method Room Air Oxygen Flow Rate 0 Narrative Exam Narrative: 84 year old female resting in bed. Alert and oriented, mildly uncomfortable. Dressing in place over left hip is CDI, some shadow drainage at superior end of the dressing. Abduction pillow in place. Patient able to flex/extend the ankle. Palpable pedal pulse. Objective Labs Result Diagrams: 09/23/19 05:21 Assessment & Plan Assessment & Plan narrative: Patient doing as expected postoperatively. Patient currently 3 persons assist and is having difficulty mobilizing to toilet. Will place gayle catheter today. She is to remain toe touch weight bearing for 6 weeks with posterior hip precautions to allow for bone consolidation. Due to concerns over the acetabulum and subsequent activity restrictions patient will require a 3 day inpatient stay, and will need SNF at time of discharge. Quality VTE Deep Vein Thrombosis/Pulmonary Embolism Present on Admission: No
--- NOTE | 2019-09-24 10:52 | PT.IPTN ---
Current Diagnoses Unilateral primary osteoarthritis, left hip (09/22/19) Surgery Performed Operation Date: 09/22/19 08:45 Actual Procedures p Total Hip Arthroplasty(Left) - Behzad Burks MD Physical Therapy Treatment Note M2 PT-IP Current Condition Start: 09/23/19 08:24 Freq: NEEDED Status: Active Protocol: Document 09/23/19 11:21 AW (Rec: 09/23/19 13:10 AW [email or web address]) Physical Therapy Current Condition Current Condition Evaluation Date 09/23/19 Treatment Diagnosis s/p L MARGRET, impaired mobility Onset Date 09/22/2019 Precautions Posterior Hip Precautions No Hip Flexion > 90 degrees,No Hip Internal Rotation,No Hip Adduction Other Precautions Abduction pillow while in bed. Pacemaker. Weight Bearing Status Weight Bearing Status Touch Down Weight Bearing M3 PT-IP Subjective Start: 09/23/19 08:24 Freq: NEEDED Status: Active Protocol: Document 09/24/19 10:33 KS (Rec: 09/24/19 11:44 KS [id number]) Subjective Physical Therapy Visit Type Type Treatment Note Visit Start Time 10:33 Visit Stop Time 10:52 Total Visit Minutes 19 Notes Pt agreeable to work with therapy, but does not agree to getting out of bed at this time. Number of EPIC INTERFACE ANALYST Visits 1 Physical Therapy Visit Comments Patient Comments Pt reports 10/10 pain in L hip . Therapy Pain Assessment Pain When Pain Assessed During Mobility Pain Present Pain Present Pain Reported Location left hip Intensity 10 Scale Used Numeric (1 - 10) Description Aching Pain Management Techniques Apply Cold,Distraction,Re- positioning M4 PT-IP Mobility and Gait Start: 09/23/19 08:24 Freq: NEEDED Status: Active Protocol: Document 09/24/19 10:33 KS (Rec: 09/24/19 11:44 KS [id number]) PT-Transfer Assessment Comments Mobility Comments Pt was unwilling to move in bed or get out of bed, however at this time agrees to getting out of bed this afternoon. M5 PT-IP Objective Assessments Start: 09/23/19 08:24 Freq: NEEDED Status: Active Protocol: Document 09/23/19 11:21 AW (Rec: 09/23/19 13:10 AW [email or web address]) Orientation Orientation/Cognition Level of Alertness Confusional State Orientation Name,Month,Year,Place, Situation Language Function Ability No Deficits Noted Safety Awareness Decreased Safety Awareness Memory Description Short Term Impaired Comments Pt noted to have had hallucinations and confusion overnight but presents with improved orientation this morning. Gross Range of Motion Upper Extremity ROM Assessment Within Functional Limits Lower Extremity ROM Assessment Left Impaired Strength Upper Extremity Strength Assessment Bilaterally Impaired Shoulder 4-/5 Elbow 4-/5 Wrist 3+/5 Hand 4-/5 Lower Extremity Strength Assessment Bilaterally Impaired Hip R 4/5; L 3-/5 Knee R 4/5; L 3-/5 Ankle B 4/5 Coordination Assessment Gross Coordination Gross Coordination WNL Sensation Assessment Sensation Gross Sensation WNL M6 PT-IP Treatment Start: 09/23/19 08:24 Freq: NEEDED Status: Active Protocol: Document 09/24/19 10:33 KS (Rec: 09/24/19 11:44 RI [id number]) Physical Therapy Treatment Exercises Exercises Ankle Pumps,Gluteal Sets,Quad Sets,Heel Slides Education Education Provided Precautions,Weight Bearing Status,Safety Other Treatments Other Treatment Performed Reviewed hip precautions, assisted pt with repositioning , completed 1x10 ankle pumps, glute sets, and quad sets, and 1 x5 heel slides. Instructed pt how to perform self massage of quads due to reported feelings of tightness and soreness. M7 PT-IP Assessment and Plan Start: 09/23/19 08:24 Freq: NEEDED Status: Active Protocol: Document 09/24/19 10:33 KS (Rec: 09/24/19 11:44 RI [id number]) PT Summary Assessment and Plan Summary Impairments Pain,ROM,Strength,Balance, Cognition,Bed Mobility, Transfers,Gait Progress Towards Goals Slow Progress - Other Assessment Summary [place] was agreeable to try exercises while in bed but refused to get out of bed at this time due to high reported pain. Pt was able to recall 1 /3 hip precautions (no crossing midline). Pt repositioned with head of bed elevated and ice pack on L hip . Stressed to pt importance of completing exercises in bed every hour. At this time, pt is agreeable to try to get out of bed this afternoon. Goals Bed Mobility Goal Contact Guard Assistance Transfer Goal Contact Guard Assistance,Front Wheeled Walker Gait Goal Contact Guard Assistance,Front Wheel Walker Gait Distance 15 Other Goals - up/down 1 platform step with FWW CGA for safe access to her bed at home. Days to Meet Goals 10 Frequency of Treatment Frequency Of Treatment Twice a Day Treatment Plan Physical Therapy Treatment Plan Bed Mobility Training,Transfer Training,Gait Training, Therapeutic Exercise,Balance Retraining,Post Op Education, Discharge Planning,Hot or Cold Pack,Neuromuscular Re-ed, Manual Therapy Other Recommendations and Next Treatment review precautions, WB status, Focus ther ex, transfers Recommendations To Nursing Amount of Assist Needed 2 Person Assist,3 or More Person Assist Discharge Recommendations PT Discharge Recommendations SNF Rehab Equipment Needed for Home Before FWW if going home Discharge
--- NOTE | 2019-09-24 11:44 | PT.IPTN ---
Current Diagnoses Unilateral primary osteoarthritis, left hip (09/22/19) Surgery Performed Operation Date: 09/22/19 08:45 Actual Procedures p Total Hip Arthroplasty(Left) - Behzad Burks MD Physical Therapy Treatment Note M2 PT-IP Current Condition Start: 09/23/19 08:24 Freq: NEEDED Status: Active Protocol: Document 09/23/19 11:21 AW (Rec: 09/23/19 13:10 AW [email or web address]) Physical Therapy Current Condition Current Condition Evaluation Date 09/23/19 Treatment Diagnosis s/p L MARGRET, impaired mobility Onset Date 09/22/2019 Precautions Posterior Hip Precautions No Hip Flexion > 90 degrees,No Hip Internal Rotation,No Hip Adduction Other Precautions Abduction pillow while in bed. Pacemaker. Weight Bearing Status Weight Bearing Status Touch Down Weight Bearing M3 PT-IP Subjective Start: 09/23/19 08:24 Freq: NEEDED Status: Active Protocol: Document 09/24/19 10:33 KS (Rec: 09/24/19 11:44 KS [id number]) Subjective Physical Therapy Visit Type Type Treatment Note Visit Start Time 10:33 Visit Stop Time 10:52 Total Visit Minutes 19 Notes Pt agreeable to work with therapy, but does not agree to getting out of bed at this time. Number of SAW FILER Visits 1 Physical Therapy Visit Comments Patient Comments Pt reports 10/10 pain in L hip . Therapy Pain Assessment Pain When Pain Assessed During Mobility Pain Present Pain Present Pain Reported Location left hip Intensity 10 Scale Used Numeric (1 - 10) Description Aching Pain Management Techniques Apply Cold,Distraction,Re- positioning M4 PT-IP Mobility and Gait Start: 09/23/19 08:24 Freq: NEEDED Status: Active Protocol: Document 09/24/19 10:33 KS (Rec: 09/24/19 11:44 KS [id number]) PT-Transfer Assessment Comments Mobility Comments Pt was unwilling to move in bed or get out of bed, however at this time agrees to getting out of bed this afternoon. Pt left in bed w/ SCDs on, abduction pillow in place, ice applied to L hip, and all needs in reach. M5 PT-IP Objective Assessments Start: 09/23/19 08:24 Freq: NEEDED Status: Active Protocol: Document 09/23/19 11:21 AW (Rec: 09/23/19 13:10 AW [email or web address]) Orientation Orientation/Cognition Level of Alertness Confusional State Orientation Name,Month,Year,Place, Situation Language Function Ability No Deficits Noted Safety Awareness Decreased Safety Awareness Memory Description Short Term Impaired Comments Pt noted to have had hallucinations and confusion overnight but presents with improved orientation this morning. Gross Range of Motion Upper Extremity ROM Assessment Within Functional Limits Lower Extremity ROM Assessment Left Impaired Strength Upper Extremity Strength Assessment Bilaterally Impaired Shoulder 4-/5 Elbow 4-/5 Wrist 3+/5 Hand 4-/5 Lower Extremity Strength Assessment Bilaterally Impaired Hip R 4/5; L 3-/5 Knee R 4/5; L 3-/5 Ankle B 4/5 Coordination Assessment Gross Coordination Gross Coordination WNL Sensation Assessment Sensation Gross Sensation WNL M6 PT-IP Treatment Start: 09/23/19 08:24 Freq: NEEDED Status: Active Protocol: Document 09/24/19 10:33 KS (Rec: 09/24/19 11:44 MS [id number]) Physical Therapy Treatment Exercises Exercises Ankle Pumps,Gluteal Sets,Quad Sets,Heel Slides Education Education Provided Precautions,Weight Bearing Status,Safety Other Treatments Other Treatment Performed Reviewed hip precautions, assisted pt with repositioning , completed 1x10 ankle pumps, glute sets, and quad sets, and 1 x5 heel slides. Instructed pt how to perform self massage of quads due to reported feelings of tightness and soreness. M7 PT-IP Assessment and Plan Start: 09/23/19 08:24 Freq: NEEDED Status: Active Protocol: Document 09/24/19 10:33 KS (Rec: 09/24/19 11:44 KS [id number]) PT Summary Assessment and Plan Summary Impairments Pain,ROM,Strength,Balance, Cognition,Bed Mobility, Transfers,Gait Progress Towards Goals Slow Progress - Other Assessment Summary [place] was agreeable to try exercises while in bed but refused to get out of bed at this time due to high reported pain. Pt was able to recall 1 /3 hip precautions (no crossing midline). Pt repositioned with head of bed elevated and ice pack on L hip . Stressed to pt importance of completing exercises in bed every hour. At this time, pt is agreeable to try to get out of bed this afternoon. Goals Bed Mobility Goal Contact Guard Assistance Transfer Goal Contact Guard Assistance,Front Wheeled Walker Gait Goal Contact Guard Assistance,Front Wheel Walker Gait Distance 15 Other Goals - up/down 1 platform step with FWW CGA for safe access to her bed at home. Days to Meet Goals 10 Frequency of Treatment Frequency Of Treatment Twice a Day Treatment Plan Physical Therapy Treatment Plan Bed Mobility Training,Transfer Training,Gait Training, Therapeutic Exercise,Balance Retraining,Post Op Education, Discharge Planning,Hot or Cold Pack,Neuromuscular Re-ed, Manual Therapy Other Recommendations and Next Treatment review precautions, WB status, Focus ther ex, transfers Recommendations To Nursing Amount of Assist Needed 2 Person Assist,3 or More Person Assist Discharge Recommendations PT Discharge Recommendations SNF Rehab Equipment Needed for Home Before FWW if going home Discharge
--- NOTE | 2019-09-24 12:38 | PC.NURSE ---
Addendum entered by Alla Gilman R.N. 09/24/19 15:09: pt just medicated with 1 vicodin. Slept and is feeling better now. Waffle cushion under bum...Appetite poor today. She is going to try and eat some clam chowder for dinner tonight. Original Note: Patient uncomfortable this morning. Given 1 vicodin for pain relief and after pt repositioned she was more comfortable. Waffle cushion applied under left hip and gayle inserted into bladder, she was voiding small,frequent amounts and ended up having more than 400cc in her bladder. Pt did not get up with physical therapy this morning but was able to get some exercises in. She is now asleep and refused her lunch.
--- NOTE | 2019-09-24 13:20 | OT.IP.TRT ---
Current Diagnoses Unilateral primary osteoarthritis, left hip (09/22/19) Surgery Performed Operation Date: 09/22/19 08:45 Actual Procedures p Total Hip Arthroplasty(Left) - Behzad Burks MD Occupational Therapy Treatment Note M2 OT-IP Current Condition Start: 09/23/19 13:59 Freq: Status: Active Protocol: Document 09/23/19 15:57 PJM (Rec: 09/23/19 16:36 PJM [id number]) Occupational Therapy Current Condition Current Condition Evaluation Date 09/23/19 Treatment Diagnosis decr'd ADL's, mobility, cognition s/p LTHA w/intra-op acetabular fx Diagnosis Onset Date 09/22/19 Post Operative Precautions Posterior Hip Precautions No Hip Flexion > 90 degrees,No Hip Internal Rotation,No Hip Adduction Other Precautions fall risk, confusion, recommend B wrist splints on for mobility due to B CTS Weight Bearing Status Weight Bearing Status Touch Down Weight Bearing Allowed Weight Bearing Amount (enter % LLE x 6 weeks or #) (%) M3 OT- IP Subjective and Pain Start: 09/23/19 13:59 Freq: Status: Active Protocol: Document 09/24/19 13:16 CCC (Rec: 09/24/19 13:20 CCC [email or web address]) OT- Subjective Occupational Therapy Visit Type Type Patient Refusal Notes Approached pt for OT treatment , pt refusing as not wanting to get out of bed at this time . To check on pt tomorrow. Nursing states pt has had a rough morning.
--- NOTE | 2019-09-24 13:57 | PT-IP ANOTE ---
Pt approached by PT and OT and refuses treatment at this time. States that she prefers to wait until tomorrow. Per nursing, pt has had a rough morning and reported high levels of pain.
--- NOTE | 2019-09-24 15:29 | CM.DPC ---
DCP Cont Pt/family have chosen [facility] for pt's DC so requested that [employer] Cert[employer] Concierge Tamy fax referral packet to [facility]. PASRR already completed. TC placed to Michelle at [facility] and pt has been accepted for admission Friday09.25.19. Meeta or Michelle will be doing admissions over the w/e. Cabulance arranged for 1130 p/u Friday. This FORM COVERER following closely for coordination of this plan. CHRIS
[2019-09-24] MEDS: WARFARIN 5 MG TABLET PO (17:25)
[2019-09-24] MEDS: diphenhydrAMINE 25 MG TABLET PO (21:17)
[2019-09-24] MEDS: ACETAMINOPHEN 325 MG TABLET 650 MG PO (21:17)
[2019-09-24] MEDS: SODIUM CHLORIDE 0.9% FLUSH 10 ML IV (21:18)
[2019-09-24] MEDS: SOTALOL 80 MG TABLET PO (21:18)
--- NOTE | 2019-09-24 22:51 | PC.NURSE ---
Assumed care of pt at 1500. Pt sleeping during bedside hand-off. Awakens to voice. Drsg with mod drainage on aquacel. CMS+. Leary draining to gravity. Declined to get up with P.T. for dinner. Declined position changes at times this shift. Medicating per mar with [place]; effective upon reassessment. Ice packs to left hip. Bed alarm on. Calling appropriately for needs.
[2019-09-25] MEDS: HYDROCODONE/ACET 5/325 TABLET 1 TAB PO ×3 (02:29→10:20)
[2019-09-25 04:35] VITALS: BP 127/60; PULSE 101; RESP 18; TEMP 36.8; O2SAT 96
--- NOTE | 2019-09-25 05:19 | PC.NURSE ---
SHELLIE Holliday notified that pt. was upset that he was woken up to draw blood form his PICC line & checked his VS. Also upset that his bed alarm was activated. Requested to turn off his bed alarm, alarm was off since 504. Will monitor.
[2019-09-25] MEDS: PANTOPRAZOLE 20 MG TABLET PO (05:30)
[2019-09-25] MEDS: LEVOTHYROXINE 112 MCG TABLET PO (05:30)
[2019-09-25] MEDS: BISACODYL 10 MG SUPP PR (05:36)
--- NOTE | 2019-09-25 05:59 | PC.NURSE ---
C/O constipation, last bowel movement was 09/21/19. Requested Dulcolax suppository 10 mg. admin. Noted hard stool in the rectal vault, tried to used the bedpan, passing flatus but no stool. Will monitor.
[2019-09-25 07:00] VITALS: BP 149/73; PULSE 110; RESP 18; TEMP 36.4; O2SAT 92
--- NOTE | 2019-09-25 09:58 | P.DS_ITS ---
History of Present Illness History of Present Illness Date Patient Seen: 09/25/19 Time Patient Seen: 10:50 Chief complaint: [id number] Left Total Hip Arthroplasty Narrative: Please see HPI previously recorded in the chart. Discharge Providers Provider Date of admission: 09/22/19 07:31 Discharge Date: 09/25/19 Primary care physician: Ashkan Lima MD Consults: 09/22/19 13:59 Consult to Physical Therapy Evaluate & Treat Comment: Physician Instructions: abduction pillow while in bed 09/22/19 15:00 Consult to Discharge Planning Routine Comment: Consult to Physical Therapy Evaluate & Treat Comment: Physician Instructions: post op MARGRET protocol Consult to Respiratory Therapy Evaluate & Treat Comment: Physician Instructions: Evaluate and treat 09/23/19 09:50 Consult to Occupational Therapy Evaluate & Treat Comment: posterior hip replacement Physician Instructions: Evaluate and treat Discharge provider: Michelle Rolon PA-C Summary Hospital Course Discharge Diagnosis: s/p left total hip arthroplasty Hospital Course: Patient is an 84-year-old female with severe left hip DJD. The patient has pain with activities and at rest, limited ambulation and activity tolerance, difficulties with ADLs, and failure of conservative treatment. We have discussed the nature of condition, treatment options, risks and benefits, and patient elects to proceed with total hip arthroplasty and gives informed consent. She was taken to the operating room where she underwent a left total hip arthroplasty with Dr. Burks. During surgery she was noted to have poor bone quality especially at the posterior acetabulum requiring the placement of several screws and a lipped liner for placement of stable components. Due to t his she is to remain toe touch weight bearing on the left lower extremity for six weeks. She is to wear an abduction pillow while at rest, as well as to maintain posterior hip precautions. Due to activity restrictions she has mobilized poorly during the course of her hospitalization, with only mobil ization about the room to commode. Pain has been controlled with Bowlegs. She has restarted her Warfarin which will serve as DVT prophylaxis. Leary catheter in place due to difficulty with mobility. She is medically stable for discharge to SNF later today. Exam Vital Signs (past 8 hours): - 09/25/19 04:35 09/25/19 07:00 Temperature 98.2 F 97.6 F Pulse Rate 101 H 110 H Respiratory Rate 18 18 Blood Pressure 127/60 149/73 H Pulse Oximetry 96 92 Oxygen Delivery Method Room Air Oxygen Flow Rate 0 Narrative Exam Narrative: 84 year old female resting in bed, alert and oriented in no acute distress. Dressing in place over left hip is CDI. Patient able to flex/extend the toes. Calves soft and compressible. Palpable pedal pulse. Objective Labs Result Diagrams: 09/23/19 05:21 Discharge Plan Discharge Plan Patient Disposition: SNF Transfer to: [facility], [facility] Consult as needed: Dental, Hearing, Mental health, Podiatry and Vision Discharge orders & Medications Prescriptions: New acetaminophen 325 mg Tablet 650 mg PO TID Qty: 40 RF: 0 hydrocodone-acetaminophen 5-325 mg Tablet 1 tab PO Q4HR PRN (Reason: Pain, Moderate (4-6)) Qty: 60 RF: 0 docusate sodium [DOK] 100 mg Capsule 100 mg PO BID Qty: 40 RF: 0 Continued pravastatin 40 mg Tablet 40 mg PO DAILY RF: 0 metoprolol succinate 50 mg Tablet Extended Release 24 Hr 50 mg PO BID RF: 0 sotalol 80 mg Tablet 80 mg PO BID RF: 0 alendronate 70 mg Tablet 70 mg PO QWEEK RF: 0 amlodipine 10 mg Tablet 10 mg PO DAILY RF: 0 warfarin 5 mg Tablet 5 mg PO QMWF RF: 0 warfarin 5 mg Tablet 2.5 mg PO [id number] RF: 0 omeprazole 20 mg Capsule,Delayed Release(Dr/Ec) 20 mg PO DAILY RF: 0 furosemide 20 mg Tablet 20 mg PO DAILY RF: 0 diphenhydramine-acetaminophen [Tylenol PM Extra Strength] 25-500 mg Tablet 1 tab PO BEDTIME PRN (Reason: Sleep) RF: 0 losartan 100 mg Tablet 100 mg PO DAILY RF: 0 levothyroxine 112 mcg Tablet 112 mcg PO DAILY RF: 0 acetaminophen 325 mg Capsule 650 mg PO Q4H PRN (Reason: Pain) RF: 0 Myrbetriq 25 mg Tablet Extended Release 24 Hr 25 mg PO DAILY RF: 0 PreserVision AREDS-2 [id number] Capsule 1 tab PO BID RF: 0 Follow up/Referrals: Behzad Burks MD [Physician] - As previously scheduled Ashkan Lima MD [Primary Care Provider] - Discharge Health Status Precautions: [place] Diet/Activity/Treatments Diet: Diet as Tolerated Liquid consistency: Normal/Thin Food texture: Regular Activity: Toe touch weight bearing only x 6 weeks Left lower extremity. Abduction pillow to remain in place while at rest. Posterior hip precautions. Cold/Heat Therapy: Ice packs as needed Catheter: 2-way Leary Skin/Wound/Dressing Care Report to your healthcare provider any signs of infection, such as:: chills, fever, night sweats, unusual drainage and unusual redness Special Rehabilitation Services Reason for rehabilitation: Post-operative therapy Rehab type: Physical therapy and Occupational therapy Visit Report/Discharge Packet Instructions: DI for Hip Replacement, How to Prevent Falls, DI for Prescription Opioid Use Discharge Data Primary Care Provider: Ashkan Lima VTE Deep Vein Thrombosis/Pulmonary Embolism Present on Admission: No
[2019-09-25] MEDS: PRAVASTATIN 20 MG TABLET 40 MG PO (10:19)
[2019-09-25] MEDS: ACETAMINOPHEN 325 MG TABLET 650 MG PO (10:19)
[2019-09-25] MEDS: METOPROLOL ER 50 MG TABLET PO (10:20)
[2019-09-25] MEDS: LOSARTAN 50 MG TABLET 100 MG PO (10:20)
[2019-09-25] MEDS: DOCUSATE 100 MG CAPSULE PO (10:21)
[2019-09-25] MEDS: FUROSEMIDE 20 MG TABLET PO (10:21)
[2019-09-25] MEDS: VIT C/E/ZN/COPPR/LUTEIN/ZEAXAN CAPSULE 1 CAP PO (10:21)
[2019-09-25] MEDS: SODIUM CHLORIDE 0.9% FLUSH 10 ML IV (10:22)
[2019-09-25] MEDS: SOTALOL 80 MG TABLET PO (10:22)
[2019-09-25] MEDS: AMLODIPINE 5 MG TABLET 10 MG PO (10:23)
--- NOTE | 2019-09-25 12:32 | PC.NURSE ---
Discharge Pt states she is in pain with movement, medicated with PO Gatzke and she states this helps a little. up with 2 person max assist. pivot transfers, TTWB on LLE. Report called to Yvette at [facility]. Dressing intact, shaddow drainage in place. Pt concerned that she hasn't had a BM. Up several times to BS, no success. Provided scheduled docusate as well as PRN miralax. [facility] as [facility]. Pt left in w/c with cabulance driver operator. states she took all belongings with her. PIV removed prior to d/c.
--- NOTE | 2019-09-25 13:00 | PT-IP ANOTE ---
Checked on pt ~ 1138 am and pt stated that she is leaving soon and supposedly 1130 and does not want to do PT at this time.
--- NOTE | 2019-09-25 15:37 | CM.DPNOTE ---
DC Note: DC order for [facility] in place and Michelle at [facility] updated, w/c transport arranged for 1130 and pt/family remained agreeable to this plan. GRUPO Rivas made aware of p/u time Faxed PASRR and completed and signed med list, DC Summary and ppk to [facility]. JW
== END 2019-09-25 11:50 | DRG 470 ==
PROVIDERS: Admitting Provider Orthopaedic Surgery; PCP Family Medicine; Visit Provider Orthopaedic Surgery
PROC: 0SRB0JZ Replacement of Left Hip Joint with Synthetic Substitute, Open Approach (ICD-10-PCS; CPT 27130; principal; 2019-09-22 08:45)
DX: M16.12 Unilateral primary osteoarthritis, left hip (principal); I49.5 Sick sinus syndrome; I48.91 Unspecified atrial fibrillation; I10 Essential (primary) hypertension; I25.10 Atherosclerotic heart disease of native coronary artery without angina pectoris; M85.88 Other specified disorders of bone density and structure, other site; M25.752 Osteophyte, left hip; M85.68 Other cyst of bone, other site; Z95.0 Presence of cardiac pacemaker; Z87.891 Personal history of nicotine dependence; Z79.01 Long term (current) use of anticoagulants
CPT/HCPCS: 36415; 72170; 85014; 85018; 94762; 97110; 97162; 97165; 97535; C1776; J0690; J1100; J1650; J1885; J2250; J2270; J2274; J2405; J2704; J3010